=== PATIENT | female | born 1960 | race American Indian/Alaskan Native ===

== ENCOUNTER 2021-11-01 21:18 | Emergency (ER) | payer OTHER ==
[2021-11-01 22:29] VITALS: BP 138/84
[2021-11-02] MEDS ORDERED: CYCLOBENZAPRINE 10 MG TAB PO ONE (05:01)
[2021-11-02] MEDS ORDERED: KETOROLAC 10 MG TAB PO ONE (05:01)
[2021-11-02] MEDS ORDERED: predniSONE 20 MG TAB PO ONE (05:01)
[2021-11-02] MEDS ORDERED: ACETAMINOPHEN W/CODEINE 300-30 MG TAB PO ONE (05:02)
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
== END 2021-11-02 06:07 | disposition home or self-care (01) ==
LOC: ED 21:18
DX: M25.511 Pain in right shoulder (principal); M25.512 Pain in left shoulder; M54.50 Low back pain, unspecified; V87.7XXA Person injured in collision between other specified motor vehicles (traffic), initial encounter; Y93.89 Activity, other specified; Y92.488 Other paved roadways as the place of occurrence of the external cause; Y99.8 Other external cause status
CPT/HCPCS: 99282